=== PATIENT | male | born 1975 | race Caucasian/White ===

== ENCOUNTER 2016-11-05 03:51 | Emergency (ER) | payer BC ==
[~2016-11-05] VITALS: Ht 185.4 cm; Wt 99.2 kg
[~2016-11-05 03:51] MED LIST: FLOMAX0.4 MG PO; KEFLEX500 MG PO; LORTAB 5-325 M1 EACH PO; NAPROSYN500 MG PO; NAPROXEN; NAPROXEN500 MG PO; VICODIN,LORT1 TABLET PO; ZOFRAN ODT4 MG PO
[2016-11-05 03:55] VITALS: BP 154/88
[2016-11-05 04:37] LABS: ADD MIUA? YES; BILIRUBIN NEGATIVE; BLOOD MODERATE; COLOR YELLOW ((YELLOW)); GLUCOSE (STRIP) NEGATIVE; KETONES NEGATIVE; LEUKOCYTES NEGATIVE; NITRITE NEGATIVE; PH, URINE 5.5 (5-8); PROTEIN (STRIP) TRACE; SPECIFIC GRAVITY 1.025 (1.000-1.030); UROBILINOGEN 0.2 MG/DL (0.2-1.0)
[2016-11-05 04:39] LABS: MCH 30.9 PG (29.0-34.0); MCHC 35.7 G/DL (30.0-36.0); MCV 86.6 FL (86-99); MEAN PLAT.VOLUME 10.5 uM^3 (9.0-12.4); PLATELET COUNT 278 K/uL (156-360); RBC DIS.WIDTH-SD 40.4 % (39-53); RED BLOOD COUNT 4.85 M/uL (4.00-5.50); WHITE BLOOD COUNT 15.7 K/uL (4.1-10.2)
[2016-11-05 04:44] LABS: CHLORIDE 103 mEq/L (99-109); SODIUM 136 mEq/L (136-147)
[2016-11-05 04:46] LABS: GLUCOSE 167 mg/dL (70-99)
[2016-11-05 04:48] LABS: ANION GAP 12 MEQ/L (2-14)
[2016-11-05 04:50] LABS: GFR ESTIMATE (CALCULATED) > 59 mL/min/
[2016-11-05 04:51] LABS: UREA NITROGEN (BUN) 26 mg/dL (9-23)
[2016-11-05 05:35] LABS: EPITHELIAL CELLS NONE SEEN; MUCUS 1+
[2016-11-05 05:36] LABS: BACTERIA NONE SEEN; CASTS PRESENT /LPF; CRYSTALS PRESENT; HYALINE CASTS 0-5 /LPF; RED BLOOD CELLS 30-40 /HPF (0-5); UCUL ADDED? NO
[2016-11-05 05:37] LABS: CALCIUM OXALATE CRYSTALS RARE
[2016-11-06] MEDS ORDERED: VITAMIN D2000 UNI1 PO (23:17)
[2016-11-06] MEDS ORDERED: MULTIPLE VITAM1 EACH PO (23:17)
== END 2016-11-05 06:18 | disposition left against medical advice (07) ==
LOC: EME 03:51
DX: R10.9 Unspecified abdominal pain (principal); Z53.21 Procedure and treatment not carried out due to patient leaving prior to being seen by health care provider
CPT/HCPCS: 80048; 81003; 85027

== ENCOUNTER 2016-11-06 22:43 | Emergency (ER) | payer BC ==
[~2016-11-06] VITALS: Ht 185.4 cm; Wt 96.5 kg
[2016-11-06] MEDS ORDERED: MULTIPLE VITAM1 EACH PO (23:17)
[2016-11-06] MEDS ORDERED: VITAMIN D2000 UNI1 PO (23:17)
[2016-11-06 23:22] LABS: ADD MIUA? YES; BILIRUBIN NEGATIVE; BLOOD LARGE; COLOR YELLOW ((YELLOW)); GLUCOSE (STRIP) NEGATIVE; KETONES NEGATIVE; LEUKOCYTES NEGATIVE; NITRITE NEGATIVE; PROTEIN (STRIP) TRACE; SPECIFIC GRAVITY 1.025 (1.000-1.030); UROBILINOGEN 0.2 MG/DL (0.2-1.0)
[2016-11-06 23:28] LABS: MCHC 35.1 G/DL (30.0-36.0); MCV 88.3 FL (86-99); MEAN PLAT.VOLUME 10.7 uM^3 (9.0-12.4); PLATELET COUNT 299 K/uL (156-360); RBC DIS.WIDTH-CV 13.2 % (11.8-14.6); RED BLOOD COUNT 4.87 M/uL (4.00-5.50); WHITE BLOOD COUNT 8.7 K/uL (4.1-10.2)
[2016-11-06 23:34] LABS: CHLORIDE 111 mEq/L (99-109); POTASSIUM 4.3 mEq/L (3.7-5.4)
[2016-11-06 23:38] LABS: ANION GAP 10 MEQ/L (2-14)
[2016-11-06 23:40] LABS: GFR ESTIMATE (CALCULATED) > 59 mL/min/
[2016-11-06 23:41] LABS: UREA NITROGEN (BUN) 28 mg/dL (9-23)
[2016-11-06 23:56] LABS: GLUCOSE 118 mg/dL (70-99); SODIUM 144 mEq/L (136-147)
[2016-11-07] LABS: BACTERIA NONE SEEN; CASTS NONE SEEN /LPF; CRYSTALS NONE SEEN; EPITHELIAL CELLS NONE SEEN; MUCUS NONE SEEN; RED BLOOD CELLS TNTC /HPF (0-5); UCUL ADDED? NO; WHITE BLOOD CELLS RARE /HPF (0-5)
[2016-11-07] MEDS ORDERED: ZOFRAN4 MG PO (00:45)
[2016-11-07] MEDS ORDERED: PERCOCET 5/31 TABLET PO (00:45)
[2016-11-07] MEDS ORDERED: FLOMAX0.4 MG PO (00:45)
[2016-11-07 00:55] VITALS: BP 00/00
== END 2016-11-07 01:03 | disposition home or self-care (01) ==
LOC: RME 22:43 → EME 22:43 → RME 11-07 01:03
PROVIDERS: Physician Assistant
DX: N20.1 Calculus of ureter (principal); Z87.442 Personal history of urinary calculi
CPT/HCPCS: 74176; 80048; 81003; 85027; 99281; 99285; J1885